=== PATIENT | male | born 1970 | race Hispanic/Latino ===

== ENCOUNTER 2019-08-21 20:36 | Emergency (ER) | payer SELFPAY ==
[2019-08-21] MEDS ORDERED: NA CHLORIDE 0.9% 1,000 ML ONE (20:56)
[2019-08-21 21:36] LABS: Protime INR 1.1
[2019-08-21 21:38] LABS: Absolute Lymphocytes (CBC) 2.3 K/uL (0.7-4.9); Basophils % 0.5 % (0-1.3); Hematocrit 45.2 % (39.6-49.0); Lymphocytes % 20.5 % (15.3-44.8); MPV 10.1 fL (7.6-11.3); RBC Red Blood Cell Count 5.99 M/uL (4.33-5.43)
[2019-08-21 21:48] LABS: ALT/SGPT 42 U/L (12-78); AST/SGOT 22 U/L (15-37); Albumin 3.9 g/dL (3.4-5.0); Alkaline Phosphatase 61 U/L (45-117); BUN Blood Urea Nitrogen 13 mg/dL (7-18); Bicarbonate 28 mmol/L (21-32); Bilirubin Direct 0.1 mg/dL (0-0.2); Bilirubin Total 0.4 mg/dL (0.2-1.0); Glucose Level 104 mg/dL (74-106); Lipase 68 U/L (73-393); Magnesium 1.9 mg/dL (1.8-2.4); Potassium 3.7 mmol/L (3.5-5.1); Protein, Total 7.6 g/dL (6.4-8.2); Sodium Level 138 mmol/L (136-145); Troponin (Emerg Dept Use Only) < 0.02 ng/mL (0.0-0.045)
--- NOTE | 2019-08-21 23:53 | ER ---
Nurse's Notes [facility] Name: Chin Kidd Age: 49 yrs Sex: Male : 1970 Arrival Date: 08/21/2019 Time: 20:39 Bed 8 Private MD: Diagnosis: Hypertension;Dizziness and giddiness Presentation: 08/21 20:41 Presenting complaint: Patient states: High blood pressure since last night, shortness lp1 of breath, chest pain, worse tonight. Transition of care: patient was not received from another setting of care. Onset of symptoms was August 21, 2019. Risk Assessment: Do you want to hurt yourself or someone else? Patient reports no desire to harm self or others. Initial Sepsis Screen: Does the patient meet any 2 criteria? No. Patient's initial sepsis screen is negative. Does the patient have a suspected source of infection? No. Patient's initial sepsis screen is negative. Care prior to arrival: None. 20:41 Method Of Arrival: Wheelchair lp1 20:41 Acuity: MICHELLE 3 lp1 Historical: - Allergies: 20:42 No Known Allergies; lp1 - Home Meds: 20:42 None [Active]; lp1 - PMHx: 20:42 None; lp1 - PSHx: 20:42 Appendectomy; lp1 - Immunization history:: Adult Immunizations up to date. - Social history:: Smoking status: Patient/guardian denies using tobacco. - Ebola Screening: : No symptoms or risks identified at this time. - Family history:: not pertinent. - Hospitalizations: : No recent hospitalization is reported. Screenin:50 Abuse screen: Denies threats or abuse. Nutritional screening: No deficits noted. jb4 Tuberculosis screening: No symptoms or risk factors identified. Fall Risk None identified. Assessment: 20:50 General: Appears in no apparent distress. uncomfortable, Behavior is calm, cooperative, jb4 appropriate for age. Pain: Complains of pain in anterior aspect of left upper chest Pain does not radiate. Pain currently is 4 out of 10 on a pain scale. Quality of pain is described as pressure. Neuro: Level of Consciousness is awake, alert, obeys commands, Oriented to person, place, time, situation. Cardiovascular: Patient's skin is warm and dry. Rhythm is sinus rhythm. Respiratory: Airway is patent Respiratory effort is even, unlabored, Respiratory pattern is regular, symmetrical. GI: No deficits noted. No signs and/or symptoms were reported involving the gastrointestinal system. : No deficits noted. No signs and/or symptoms were reported regarding the genitourinary system. EENT: No deficits noted. No signs and/or symptoms were reported regarding the EENT system. Derm: Skin is intact, Skin is pink, warm \T\ dry. Musculoskeletal: Circulation, motion, and sensation intact. Range of motion: intact in all extremities. 22:03 Reassessment: Patient appears in no apparent distress at this time. Patient and/or jb4 family updated on plan of care and expected duration. Pain level reassessed. Patient is alert, oriented x 3, equal unlabored respirations, skin warm/dry/pink. 23:00 Reassessment: Patient appears in no apparent distress at this time. Patient and/or jb4 family updated on plan of care and expected duration. Pain level reassessed. Patient is alert, oriented x 3, equal unlabored respirations, skin warm/dry/pink. Family is at the bedside. 08/22 00:09 Reassessment: Patient appears in no apparent distress at this time. Patient and/or jb4 family updated on plan of care and expected duration. Pain level reassessed. Patient is alert, oriented x 3, equal unlabored respirations, skin warm/dry/pink. Vital Signs: 08/21 20:42 BP 140 / 90; Pulse 87; Resp 20; Temp 97.5(O); Pulse Ox 97% on R/A; Weight 106.14 kg lp1 (R); Pain 8/10; 21:51 BP 104 / 71 Supine; Pulse 77; Resp 20; Pulse Ox 95% on R/A; mw2 21:55 BP 113 / 82 Sitting; Pulse 84; Resp 19; Pulse Ox 96% on R/A; mw2 22:00 BP 102 / 81 Standing; Pulse 80; Resp 19; Pulse Ox 99% on R/A; mw2 23:00 BP 101 / 73; Pulse 80; Resp 15; Pulse Ox 97% on R/A; jb4 08/22 00:00 BP 117 / 77; Pulse 74; Resp 12; Pulse Ox 97% on R/A; jb4 ED Course: 08/21 20:39 Patient arrived in ED. jb4 20:42 Triage completed. lp1 20:42 Arm band placed on. lp1 20:42 Patient has correct armband on for positive identification. Bed in low position. lp1 nurse monitoring on. Pulse ox on. NIBP on. 20:44 Nando Tolliver MD is Attending Physician. rn 20:50 Inserted saline lock: 20 gauge in right antecubital area, using aseptic technique. jb4 Blood collected. 21:00 Franko Jaime RN is Primary Nurse. jb4 21:16 CT completed. Patient tolerated procedure well. Patient moved back from CT. nj 21:25 CT Head Brain wo Cont In Process Unspecified. EDMS 21:32 XRAY Chest (1 view) In Process Unspecified. EDMS 22:03 Warm blanket given. jb4 08/22 00:00 No provider procedures requiring assistance completed. IV discontinued, intact, jb4 bleeding controlled, No redness/swelling at site. Pressure dressing applied. Administered Medications: 08/21 20:59 Drug: NS 0.9% 1000 ml Route: IV; Rate: 1000 ml; Site: right antecubital; aa1 22:00 Follow up: Response: No adverse reaction; IV Status: Completed infusion; IV Intake: jb4 1000ml Intake: 22:00 IV: 1000ml; Total: 1000ml. jb4 Outcome: 23:52 Discharge ordered by . rn 08/22 00:10 Discharged to home ambulatory, with family. jb4 Condition: stable Discharge instructions given to patient, family, Instructed on discharge instructions, follow up and referral plans. Demonstrated understanding of instructions, follow-up care. 00:12 Patient left the ED. jb4 Signatures: Dispatcher [employer] EDWV Sandra Delgado RN RN aa1 Nando Tolliver MD MD rn Pena, Laura, RN RN lp1 Franko Jaime RN RN jb4 Jeremie Ferro MyKena [facility]
--- NOTE | 2019-08-21 23:53 | EDPHYS ---
Physician Documentation [facility] Name: Chin Kidd Age: 49 yrs Sex: Male : 1970 Arrival Date: 08/21/2019 Time: 20:39 Bed 8 Private MD: ED Physician Nando Tolliver HPI: 08/21 21:10 This 49 yrs old Male presents to ER via Wheelchair with complaints of rn dizziness, chest pain. 21:10 The patient presents with dizziness, generalized weakness, lightheadedness. Onset: The rn symptoms/episode began/occurred last night. Context: occurred at home, occurred while the patient was standing. Modifying factors: The symptoms are alleviated by lying down, the symptoms are aggravated by standing up, changing position. Associated signs and symptoms: Pertinent positives: chest pain, Pertinent negatives: abdominal pain, confusion, diaphoresis, headache, numbness, seizure, shortness of breath, syncope, tingling, vomiting. Severity of symptoms: At their worst the symptoms were moderate in the emergency department the symptoms have improved. The patient has not experienced similar symptoms in the past. Reports since last night has experienced several episodes of dizziness and feeling like is going to pass out, no LOC, no seizure, reports used to get similar episodes in past with hypoglycemia and pancreas problems. Reports this feels different, tried to drink something or eat something just in case and did not help. Went to EMS station, told had high BP, and to take aspirin, felt better so went home. REports happened again for 4th episode, this time felt some chest tightness, brief, no w resolved. . Historical: - Allergies: 20:42 No Known Allergies; lp1 - Home Meds: 20:42 None [Active]; lp1 - PMHx: 20:42 None; lp1 - PSHx: 20:42 Appendectomy; lp1 - Immunization history:: Adult Immunizations up to date. - Social history:: Smoking status: Patient/guardian denies using tobacco. - Ebola Screening: : No symptoms or risks identified at this time. - Family history:: not pertinent. - Hospitalizations: : No recent hospitalization is reported. ROS: 21:18 Constitutional: Negative for fever, chills, and weight loss, Eyes: Negative for injury, rn pain, redness, and discharge, Neck: Negative for injury, pain, and swelling, Cardiovascular: Negative for palpitations, and edema, Respiratory: Negative for shortness of breath, cough, wheezing, and pleuritic chest pain, Abdomen/GI: Negative for abdominal pain, nausea, vomiting, diarrhea, and constipation, MS/Extremity: Negative for injury and deformity, Skin: Negative for injury, rash, and discoloration, Neuro: Negative for headache, weakness, numbness, tingling, and seizure. Exam: 21:18 Constitutional: Overweight male, no acute distress. Head/Face: Normocephalic, rn atraumatic. Eyes: Pupils equal round and reactive to light, extra-ocular motions intact. Lids and lashes normal. Conjunctiva and sclera are non-icteric and not injected. Cornea within normal limits. Periorbital areas with no swelling, redness, or edema. ENT: dry MM Neck: Trachea midline, no thyromegaly or masses palpated, and no cervical lymphadenopathy. Supple, full range of motion without nuchal rigidity, or vertebral point tenderness. No Meningismus. Cardiovascular: Regular rate and rhythm, no murmur. No pulse deficits. Respiratory: No increased work of breathing, no retractions or nasal flaring. Abdomen/GI: soft, non-tender MS/ Extremity: Pulses equal, no cyanosis. Neurovascular intact. Full, normal range of motion. Equal circumference. Neuro: Awake and alert, GCS 15, oriented to person, place, time, and situation. Cranial nerves II-XII grossly intact. Motor strength 5/5 in all extremities. Sensory grossly intact. Cerebellar exam normal. Vital Signs: 20:42 BP 140 / 90; Pulse 87; Resp 20; Temp 97.5(O); Pulse Ox 97% on R/A; Weight 106.14 kg lp1 (R); Pain 8/10; 21:51 BP 104 / 71 Supine; Pulse 77; Resp 20; Pulse Ox 95% on R/A; mw2 21:55 BP 113 / 82 Sitting; Pulse 84; Resp 19; Pulse Ox 96% on R/A; mw2 22:00 BP 102 / 81 Standing; Pulse 80; Resp 19; Pulse Ox 99% on R/A; mw2 23:00 BP 101 / 73; Pulse 80; Resp 15; Pulse Ox 97% on R/A; jb4 08/22 00:00 BP 117 / 77; Pulse 74; Resp 12; Pulse Ox 97% on R/A; jb4 MDM: 08/21 20:44 Patient medically screened. rn 23:50 Differential diagnosis: cardiac arrhythmia, hypovolemia, idiopathic dizziness, rn near-syncope, TIA, vertigo. Data reviewed: vital signs, nurses notes, lab test result(s), EKG, radiologic studies, CT scan, plain films, and as a result, I will discharge patient. Counseling: I had a detailed discussion with the patient and/or guardian regarding: the historical points, exam findings, and any diagnostic results supporting the discharge/admit diagnosis, the presence of at least one elevated blood pressure reading (>120/80) during this emergency department visit, lab results, radiology results, the need for outpatient follow up, to return to the emergency department if symptoms worsen or persist or if there are any questions or concerns that arise at home. Response to treatment: the patient's symptoms have resolved after treatment, the patient's condition has returned to base line, the patient is now symptom free, patient is well hydrated. and as a result, I will discharge patient. Special discussion: I discussed with the patient/guardian in detail that at this point there is no indication for admission to the hospital. It is understood, however, that if the symptoms persist or worsen the patient needs to return immediately for re-evaluation. Based on the history and exam findings, there is no indication for further emergent testing or inpatient evaluation. I discussed with the patient/guardian the need to see the pourer crane ladle for further evaluation of the symptoms. I discussed with the patient/guardian the need to see the primary care provider for further evaluation of the symptoms. ED course: Trop neg x 2, no ischemia on ECG, CT head negative for acute findings. Asymptomatic now and BP came down accordingly. Recommend pcp f/u and cardiology f/u, along with daily BP measurement to see if needs medication for BP. Currently down to 101/73 and asymptomatic so will not prescribe HTN med given risk of hypotension and exacerbating near syncopal episodes that patient felt today. . 08/21 20:53 Order name: Basic Metabolic Panel; Complete Time: 22:17 rn 08/21 20:53 Order name: CBC with Diff; Complete Time: 22:17 rn 08/21 20:53 Order name: Hepatic Function; Complete Time: 22:17 rn 08/21 20:53 Order name: Lipase; Complete Time: 22:17 rn 08/21 20:53 Order name: Magnesium; Complete Time: 22:17 rn 08/21 20:53 Order name: Protime (+inr); Complete Time: 22:17 rn 08/21 20:53 Order name: CT Head Brain wo Cont rn 08/21 20:53 Order name: Ptt, Activated; Complete Time: 22:17 rn 08/21 20:53 Order name: Troponin (emerg Dept Use Only); Complete Time: 22:17 rn 08/21 20:53 Order name: EKG; Complete Time: 20:54 rn 08/21 20:53 Order name: Cardiac monitoring; Complete Time: 20:58 rn 08/21 20:53 Order name: XRAY Chest (1 view) rn 08/21 22:48 Order name: Troponin (emerg Dept Use Only); Complete Time: 23:48 rn 08/21 20:53 Order name: EKG - Nurse/Tech; Complete Time: 20:58 rn 08/21 20:53 Order name: IV Saline Lock; Complete Time: 20:58 rn 08/21 20:53 Order name: Labs collected and sent; Complete Time: 20:58 rn 08/21 20:53 Order name: NPO; Complete Time: 20:58 rn 08/21 20:53 Order name: O2 Per Protocol; Complete Time: 20:58 rn 08/21 20:53 Order name: O2 Sat Monitoring; Complete Time: 20:58 rn 08/21 20:54 Order name: Orthostatic Blood Pressure; Complete Time: 21:20 rn Administered Medications: 20:59 Drug: NS 0.9% 1000 ml Route: IV; Rate: 1000 ml; Site: right antecubital; aa1 22:00 Follow up: Response: No adverse reaction; IV Status: Completed infusion; IV Intake: jb4 1000ml Disposition: 08/21/19 23:52 Discharged to Home. Impression: Hypertension, Dizziness and giddiness. - Condition is Stable. - Discharge Instructions: Dizziness, Hypertension, Managing Your Hypertension. - Medication Reconciliation Form, Thank You Letter, Antibiotic Education, Prescription Opioid Use form. - Follow up: Private Physician; When: As needed; Reason: Recheck today's complaints, Re-evaluation by your physician. - Problem is new. - Symptoms have improved. Signatures: Dispatcher [employer] EDMN Sandra Delgado, RN RN aa1 Nando Tolliver MD MD rn Pena, Laura, RN RN lp1 Franko Jaime RN RN jb4 Corrections: (The following items were deleted from the chart) 21:13 21:10 Reports since last night has experienced several episodes of dizziness and rn feeling like is going to pass out, no LOC, no seizure, reports used to get similar episodes in past with hypoglycemia and pancreas problems. . rn 08/22 00:12 08/21 23:52 08/21/2019 23:52 Discharged to Home. Impression: Hypertension; Dizziness jb4 and giddiness. Condition is Stable. Forms are Medication Reconciliation Form, Thank You Letter, Antibiotic Education, Prescription Opioid Use. Follow up: Private Physician; When: As needed; Reason: Recheck today's complaints, Re-evaluation by your physician. Problem is new. Symptoms have improved. rn
[2019-08-22 02:38] VITALS: TEMP 97.5
[2019-08-22 02:44] VITALS: BP 101/73; O2SAT 97
--- NOTE | 2019-08-22 07:26 | RAD REPORT ---
EXAM DESCRIPTION: RAD - Chest Single View - 08/21/2019 9:32 pm CLINICAL HISTORY: Chest pain, hypertension COMPARISON: None. TECHNIQUE: AP portable chest image was obtained 2124 hours . FINDINGS: Lungs are clear. Heart size is upper normal, accentuated by portable technique and large b alicia habitus. No vascular engorgement. No measurable pleural effusion and no pneumothorax. No acute martha ny abnormality seen. No acute aortic findings suspected. IMPRESSION: No acute cardiopulmonary process.
--- NOTE | 2019-08-22 11:40 | RAD REPORT ---
EXAM DESCRIPTION: CT - Head Brain Wo Cont - 08/22/2019 2:35 am CLINICAL HISTORY: Dizziness, near syncope COMPARISON: None Available. TECHNIQUE: Multiple helical axial tomographic images were obtained of the head without intravenous c ontrast. This exam was performed according to our departmental dose-optimization program, which inclu pennie automated exposure control, adjustment of the mA and/or kV according to patient size and/or use o f iterative reconstruction technique. FINDINGS: There is no acute intracranial hemorrhage. No mass. No midline shift. No ventriculomegaly. Boyer-white matter differentiation is maintained. Paranasal sinuses are clear. Mastoid air cells and middle ear spaces are clear. Orbits and orbital co ntents are unremarkable. Osseous structures are unremarkable. Surrounding soft tissues are unremarkable. IMPRESSION: No acute intracranial process. Electronically signed by: Paddy Dc MD 08/21/2019 9:54 PM DRIVEWAY ATTENDANT Due to temporary technical issues with the PACS/Fluency reporting system, reports are being signed by the in house radiologist as a courtesy to ensure prompt reporting. The interpreting radiologist is f ully responsible for the content of the report.
--- NOTE | 2019-08-22 12:49 | EKG ---
Test Date: 2019-08-21 Test Time: 20:37:07 Client Experience Consultant: HITESH MEASUREMENT RESULTS: Intervals: Rate: 92 NH: 152 QRSD: 92 QT: 346 QTc: 427 [place]: P: 73 NH: 152 QRS: 29 T: 65 INTERPRETIVE STATEMENTS: Normal sinus rhythm Normal ECG No previous ECG available for comparison Electronically Signed On 08-22-19 12:48:56 CAN LINE EXAMINER by Redd Lozano
== END 2019-08-22 00:12 | disposition home or self-care (01) ==
LOC: ER 20:36
DX: I10 Essential (primary) hypertension (principal)
CPT/HCPCS: 36415; 70450; 71045; 80048; 80076; 83690; 83735; 84484; 85025; 85610; 85730; 93005; 96360; 99285; J7030